=== PATIENT | female | born 1985 | race Caucasian/White ===

== ENCOUNTER 2018-08-30 11:16 | Emergency (ER) | payer OTHER ==
[~2018-08-30] VITALS: Ht 154.9 cm; Wt 61.2 kg
[2018-08-30 11:19] VITALS: BP 107/78; Ht 154.9 cm; Wt 61.2 kg
== END 2018-08-30 13:20 | disposition left against medical advice (07) ==
LOC: ED 11:16
DX: Z53.21 Procedure and treatment not carried out due to patient leaving prior to being seen by health care provider (principal)